=== PATIENT | male | born 1975 | race Caucasian/White ===

== ENCOUNTER 2025-01-10 16:15 | Inpatient (IN) | payer BC ==
[~2025-01-10] VITALS: Ht 170.2 cm; Wt 89.5 kg
[2025-01-10] MEDS ORDERED: METOCLOPRAMIDE HCL 10 MG/2 ML VIAL ONE (17:47)
[2025-01-10] MEDS ORDERED: KETOROLAC TROMETHAMINE 15 MG INJ ONE (17:47)
[2025-01-10 17:51] LABS: BASOPHILS % (AUTO) 0.2 % (0.0-2.0); EOSINOPHILS # (AUTO) 0.3 K/uL (0.0-0.7); EOSINOPHILS % (AUTO) 2.9 % (0.0-7.0); HEMATOCRIT 54.2 % (36.7-47.1); HEMOGLOBIN 18.7 g/dL (12.5-16.3); LYMPHOCYTES # (AUTO) 1.4 K/uL (0.8-4.8); LYMPHOCYTES % (AUTO) 13.9 % (20.5-51.5); MEAN CORPUSCULAR HEMOGLOBIN 30.2 uug (23.8-33.4); MEAN CORPUSCULAR HGB CONC 34 g/dL (32.5-36.3); MEAN CORPUSCULAR VOLUME 87.9 fL (73.0-96.2); MONOCYTES # (AUTO) 0.8 K/uL (0.1-1.30); MONOCYTES % (AUTO) 8.4 % (0.0-11.0); NEUTROPHILS # (AUTO) 7.5 K/uL (1.8-8.9); NEUTROPHILS % (AUTO) 74.6 % (38.5-71.5); PLATELET COUNT (AUTO) 226 K/uL (152-348); RED BLOOD CELL COUNT(AUTO) 6.17 MIL/uL (4.06-5.63); RED CELL DISTRIBUTION WIDTH 12.5 % (12.1-16.2); WHITE BLOOD COUNT (AUTO) 10.1 K/uL (3.6-10.2)
[2025-01-10 17:55] LABS: DIFFERENTIAL COMMENT 1
[2025-01-10 17:59] LABS: CARBON DIOXIDE 30 mmol/L (21-32); CHLORIDE 98 mmol/L (98-107); CREATININE 1.3 mg/dL (0.6-1.3); GLUCOSE 115 mg/dL (74-106); POTASSIUM 3.5 mmol/L (3.5-5.1); SODIUM SERUM 135 mmol/L (136-145); UREA NITROGEN, BLOOD 12 mg/dL (7-18)
[2025-01-10 18:05] LABS: ALANINE AMINOTRANSFERASE 70 U/L (16-63); ALKALINE PHOSPHATASE 59 U/L (50-136); ASPARTATE AMINOTRANSFERASE 23 U/L (15-37); BILIRUBIN,DIRECT 0.2 mg/dL (0.0-0.2); BILIRUBIN,TOTAL 0.7 mg/dL (0.2-1.0); TOTAL PROTEIN, SERUM 7.1 g/dL (6.4-8.2)
[2025-01-10] MEDS: KETOROLAC TROMETHAMINE 15 MG INJ IVP ONE (18:15)
[2025-01-10] MEDS: METOCLOPRAMIDE HCL 10 MG/2 ML VIAL IV ONE (18:15)
[2025-01-10] MEDS ORDERED: IV NORMAL SALINE 250 ML IV ONE (18:23)
[2025-01-10] MEDS ORDERED: SWABABLE VALVE TRANSFER SET EA MC ONE (18:24)
[2025-01-10] MEDS ORDERED: IOHEXOL 350 100 ML INFUS..BTL ONE (18:24)
[2025-01-10] MEDS ORDERED: ROSU5TAB PO (19:37)
[2025-01-10] MEDS ORDERED: ASPIRIN 81 MG TAB.CHEW ONE (19:45)
[2025-01-10] MEDS ORDERED: NITROGLYCERIN OINT 1 GM PACKET TP ONE (19:45)
[2025-01-10] MEDS: ASPIRIN 81 MG TAB.CHEW PO ONE (19:49)
[2025-01-10] MEDS: NITROGLYCERIN OINT 1 GM PACKET TP ONE (19:49)
[2025-01-10] MEDS ORDERED: REMEDY ESSENTIAL ZINC PASTE 113 GM TP PRN (22:00)
[2025-01-10] MEDS ORDERED: MORPHINE SULFATE 2 MG/1 ML DISP.SYRIN IV PRN (22:00)
[2025-01-10] MEDS ORDERED: ONDANSETRON 4 MG/2 ML VIAL IV PRN (22:00)
[2025-01-10] MEDS: ACETAMINOPHEN 325 MG TABLET PO PRN (23:12)
[2025-01-10] MEDS: IV NS 1000 ML 1,000 ML IV PRN (23:20)
[2025-01-10 23:30] VITALS: BP 132/81; TEMP 98.6; O2SAT 98
[2025-01-11 04:31] VITALS: BP 106/74; TEMP 97.2; O2SAT 98
[2025-01-11 06:19] VITALS: BP 130/88; TEMP 98.1; O2SAT 98
[2025-01-11 07:15] LABS: BASOPHILS % (AUTO) 0.3 % (0.0-2.0); EOSINOPHILS # (AUTO) 0.2 K/uL (0.0-0.7); HEMATOCRIT 50.5 % (36.7-47.1); HEMOGLOBIN 17.2 g/dL (12.5-16.3); LYMPHOCYTES # (AUTO) 1.5 K/uL (0.8-4.8); LYMPHOCYTES % (AUTO) 11.8 % (20.5-51.5); MEAN CORPUSCULAR HEMOGLOBIN 30.3 uug (23.8-33.4); MEAN CORPUSCULAR HGB CONC 34 g/dL (32.5-36.3); MEAN CORPUSCULAR VOLUME 88.8 fL (73.0-96.2); MONOCYTES # (AUTO) 1.2 K/uL (0.1-1.30); NEUTROPHILS # (AUTO) 9.5 K/uL (1.8-8.9); NEUTROPHILS % (AUTO) 75.9 % (38.5-71.5); PLATELET COUNT (AUTO) 222 K/uL (152-348); RED BLOOD CELL COUNT(AUTO) 5.69 MIL/uL (4.06-5.63); RED CELL DISTRIBUTION WIDTH 12.6 % (12.1-16.2); WHITE BLOOD COUNT (AUTO) 12.5 K/uL (3.6-10.2)
[2025-01-11 07:31] LABS: DIFFERENTIAL COMMENT 1
[2025-01-11 07:36] LABS: CALCIUM 8.9 mg/dL (8.5-10.1); CREATININE 1.5 mg/dL (0.6-1.3); MAGNESIUM 2.1 mg/dL (1.8-2.4); PHOSPHOROUS 3.4 mg/dL (2.5-4.9); POTASSIUM 4.1 mmol/L (3.5-5.1)
[2025-01-11 07:44] VITALS: BP 123/85; TEMP 98; O2SAT 100
[2025-01-11] MEDS: ASPIRIN EC 81 MG TABLET.DR PO SCH (08:26)
[2025-01-11] MEDS: ENOXAPARIN SODIUM 40 MG/0.4 ML DISP.SYRIN SQ SCH (08:28)
[2025-01-11] MEDS: AMLODIPINE 5 MG TABLET PO SCH (11:24)
[2025-01-11 11:54] VITALS: BP 135/90; TEMP 98.2; O2SAT 98
[2025-01-11] MEDS: NICOTINE 14 MG/24HR PATCH TD SCH (13:37)
[2025-01-11 15:50] VITALS: BP 137/95; TEMP 98.4; O2SAT 97
[2025-01-11 19:00] VITALS: BP 141/103; TEMP 98.6; O2SAT 96
[2025-01-11] MEDS: hydrALAZINE HCL 25 MG TABLET PO SCH (19:36)
[2025-01-11] MEDS: ATORVASTATIN 40 MG TABLET PO SCH (20:29)
[2025-01-12 00:33] VITALS: BP 137/93; TEMP 98.2; O2SAT 98
[2025-01-12 00:38] LABS: *BILIRUBIN,URIN NEGATIVE (NEGATIVE); *BLOOD, URINE NEGATIVE (NEGATIVE); *CLARITY,URINE CLEAR (CLEAR); *COLOR,URINE YELLOW (YELLOW); *KETONES,URINE NEGATIVE (NEGATIVE); *PROTEIN,URINE NEGATIVE (NEGATIVE); *UROBILINOGEN,URINE 0.2 E.U./dl (NORMAL); LEUKOCYTE ESTERASE ,URINE NEGATIVE (NEGATIVE); NITRITE, URINE NEGATIVE (NEGATIVE); UGLUCOSE NEGATIVE (NEGATIVE)
[2025-01-12 04:34] VITALS: BP 139/101; TEMP 98; O2SAT 97
[2025-01-12 07:04] LABS: BASOPHILS % (AUTO) 0.3 % (0.0-2.0); EOSINOPHILS # (AUTO) 0.3 K/uL (0.0-0.7); EOSINOPHILS % (AUTO) 3.2 % (0.0-7.0); HEMATOCRIT 52.2 % (36.7-47.1); HEMOGLOBIN 18.2 g/dL (12.5-16.3); LYMPHOCYTES # (AUTO) 1.6 K/uL (0.8-4.8); LYMPHOCYTES % (AUTO) 17.9 % (20.5-51.5); MEAN CORPUSCULAR HEMOGLOBIN 30.7 uug (23.8-33.4); MEAN CORPUSCULAR HGB CONC 35 g/dL (32.5-36.3); MEAN CORPUSCULAR VOLUME 87.9 fL (73.0-96.2); MONOCYTES % (AUTO) 11.1 % (0.0-11.0); NEUTROPHILS # (AUTO) 5.9 K/uL (1.8-8.9); NEUTROPHILS % (AUTO) 67.5 % (38.5-71.5); PLATELET COUNT (AUTO) 229 K/uL (152-348); RED BLOOD CELL COUNT(AUTO) 5.93 MIL/uL (4.06-5.63); RED CELL DISTRIBUTION WIDTH 12.6 % (12.1-16.2); WHITE BLOOD COUNT (AUTO) 8.7 K/uL (3.6-10.2)
[2025-01-12 07:11] LABS: DIFFERENTIAL COMMENT 1
[2025-01-12 07:18] LABS: CALCIUM 8.8 mg/dL (8.5-10.1); CREATININE 1.4 mg/dL (0.6-1.3); MAGNESIUM 2.2 mg/dL (1.8-2.4); PHOSPHOROUS 3.2 mg/dL (2.5-4.9); POTASSIUM 4.1 mmol/L (3.5-5.1)
[2025-01-12 07:28] LABS: THYROID STIMULATING HORMONE 1.586 mIU/mL (0.358-3.740)
[2025-01-12 07:30] VITALS: BP 153/94; TEMP 98.1; O2SAT 97
[2025-01-12 08:18] VITALS: BP 153/94
[2025-01-12] MEDS ORDERED: NICO-671 TD (10:42)
[2025-01-12] MEDS ORDERED: ASPI-618 PO (10:42)
[2025-01-12] MEDS ORDERED: AMLO-212 PO (10:42)
[2025-01-12] MEDS ORDERED: CYCL10TA9 PO (11:17)
== END 2025-01-12 11:50 | disposition home or self-care (01) | DRG 552 ==
LOC: ER 16:15 → TELE3 22:31
PROVIDERS: ADMIT Nurse Practitioner Acute Care; ATTEND Student in an Organized Health Care Education/Training Program
DX: M54.81 Occipital neuralgia (principal); R79.89 Other specified abnormal findings of blood chemistry; R94.4 Abnormal results of kidney function studies; T50.8X5A Adverse effect of diagnostic agents, initial encounter; Y92.538 Other ambulatory health services establishments as the place of occurrence of the external cause; F17.290 Nicotine dependence, other tobacco product, uncomplicated; I13.10 Hypertensive heart and chronic kidney disease without heart failure, with stage 1 through stage 4 chronic kidney disease, or unspecified chronic kidney disease; N18.2 Chronic kidney disease, stage 2 (mild); Z79.82 Long term (current) use of aspirin
CPT/HCPCS: 36415; 70450; 70496; 71045; 83735; 84100; 84443; 84484; 85025; 85730; 93307; A4606; A4663; G0378; J1650; J1885; J2765; J7040; Q9967

== ENCOUNTER 2025-01-14 13:50 | Emergency (ER) | payer BC ==
[~2025-01-14] VITALS: Ht 170.2 cm; Wt 84.8 kg
[~2025-01-14 13:50] MED LIST: AMLO-212 PO; ASPI-618 PO; CYCL10TA9 PO; NICO-671 TD; ROSU5TAB PO
[2025-01-14 14:22] VITALS: BP 151/96; O2SAT 96
== END 2025-01-14 14:22 | disposition home or self-care (01) ==
LOC: ER 13:50
DX: I10 Essential (primary) hypertension (principal); E78.5 Hyperlipidemia, unspecified; Z79.82 Long term (current) use of aspirin; Z79.899 Other long term (current) drug therapy; Z86.69 Personal history of other diseases of the nervous system and sense organs
CPT/HCPCS: A4606; A4663